=== PATIENT | female | born 1980 | race Caucasian/White ===

== ENCOUNTER 2018-03-16 16:50 | Emergency (ER) | payer SELFPAY ==
[~2018-03-16] VITALS: Ht 160 cm; Wt 55.3 kg
[2018-03-16 16:50] VITALS: BP 160/95
[2018-03-16] MEDS ORDERED: FLUORESCEIN SODIUM OPHTH 1 EA STRIP OP STA (17:06)
[2018-03-16] MEDS ORDERED: TETRAcaine 5 ML BOTTLE EACHEYE ONE (17:30)
== END 2018-03-16 18:15 | disposition home or self-care (01) ==
LOC: ER 16:54
DX: H10.213 Acute toxic conjunctivitis, bilateral (principal)
CPT/HCPCS: 99283; A4606; Z7610